=== PATIENT | female | born 1950 | race African-American/Black ===

== ENCOUNTER 2018-06-06 08:23 | Day surgery (SDC) | payer OTHER ==
[2018-06-05 11:39] VITALS: BMI 36.6
[2018-06-06] MEDS ORDERED: MIDAZOLAM HCL 2 MG/2 ML SINGLE DOSE VIAL ONE ×3 (09:35→10:29)
[2018-06-06] MEDS ORDERED: PROPOFOL 20 ML ONE ×3 (09:35→10:40)
[2018-06-06] MEDS ORDERED: ROPIVACAINE HCL 0.5% 30ML VIAL ONE (09:43)
[2018-06-06] MEDS ORDERED: GUM MASTIC/STORAX/MSAL/ALCOHOL 1 DRP DROPSBTL MC ONE (11:31)
[2018-06-06] MEDS ORDERED: oxyCODONE HCL 5 MG TABLET PO PRN ×2 (11:51)
[2018-06-06] MEDS ORDERED: ONDANSETRON 4 MG/2 ML VIAL IVPUSH PRN (11:51)
[2018-06-06] MEDS ORDERED: LACTATED RINGERS SOLUTION 1,000 ML IV SCH (12:00)
[2018-06-06 13:37] VITALS: BP 109/68; PULSE 74; TEMP 97.8
--- NOTE | 2018-06-06 20:35 | OP ---
DATE OF OPERATION: 06/06/2018 PREOPERATIVE DIAGNOSIS: Left basal joint osteoarthritis. POSTOPERATIVE DIAGNOSIS: Left basal joint osteoarthritis. OPERATIVE PROCEDURE: 1. Left basal joint arthroplasty with suspensionplasty. 2. Left basal joint tendon transfer. SURGEON: Nehemias Hdz M.D. RIBBING MACHINE OPERATOR: Carlos Morelos ANESTHESIA: Regional. COMPLICATIONS: None. ESTIMATED BLOOD LOSS: Minimal. INDICATION FOR PROCEDURE: The patient is a 67-year-old female with the above findings, indicated for operative treatment. Risks, benefits, and alternatives were discussed with the patient at length. Proper informed consent was obtained. DESCRIPTION OF PROCEDURE: After proper identification of the patient and correct operative site, patient was brought to the operating room and placed supine on the operating room table, all bony prominences well padded. Sedation was given by the anesthesiologist as well as regional anesthesia. Left upper extremity was prepped and draped in the usual sterile fashion. Well padded tourniquet was placed with a sterile prep. Esmarch bandage to exsanguinate the left upper extremity. Tourniquet inflated to 250 mmHg. Whiteside approach was used for the basilar joint. Sharp dissection was taken through the skin with blunt and sharp dissection to subcutaneous tissues, taking care to protect sensory nerves in the area. Thenar muscle was elevated off the carpometacarpal joint and a longitudinal capsulotomy was performed at the carpometacarpal joint dorsal radially. Severe synovitis was noted at the basilar joint. Arthrosis was also noted at the scaphotrapezial joint. Severe synovitis was noted. This was debrided. The trapezium was then excised with periosteal dissection. Once the trapezium was excised, a suture suspensionplasty was performed using Arthrex Swivelock anchors and Fibertape suture. The first Swivelock anchor was placed into the base of the index metacarpal. This was loaded with the Fibertape suture which was then brought across the base of the trapezium and attached to the radial dorsal aspect of the thumb metacarpal with another Swivelock anchor. Full range of motion was achieved and excellent suspensionplasty was achieved. The capsule was repaired, tendon transfer of the APL tendon was performed to the dorsal aspect of the capsule for reinforcement. Wound was irrigated and repaired with 4-0 Vicryl and 4-0 Monocryl suture. Sterile dressings were applied. Thumb spica splint was placed. Patient was reversed from anesthesia, sedation and brought to the recovery room in stable condition. She tolerated the procedure well. Edward Dior, the bankruptcy assistant, was integral throughout the procedure. Procedure could not have been performed without a skilled operative bankruptcy assistant. NEHEMIAS HDZ M.D. [id number]
== END 2018-06-06 13:42 | disposition home or self-care (01) ==
LOC: FASU 08:23
PROVIDERS: ATTEND Orthopaedic Surgery Hand Surgery
PROC: 0RQT0ZZ Repair Left Carpometacarpal Joint, Open Approach (ICD-10-PCS; 2018-06-06)
PROC: 0LX80ZZ Transfer Left Hand Tendon, Open Approach (ICD-10-PCS; principal; 2018-06-06 10:42)
DX: M18.12 Unilateral primary osteoarthritis of first carpometacarpal joint, left hand (principal)